=== PATIENT | female | born 1990 | race African-American/Black ===

== ENCOUNTER 2017-05-27 09:44 | Observation (INO) | payer MEDICAID ==
[~2017-05-27] VITALS: Ht 162.6 cm; Wt 70.3 kg
[2017-05-27 10:26] LABS: CLARITY URINE CLOUDY (CLEAR); COLOR URINE YELLOW (YELLOW); GLUCOSE URINE NEGATIVE (NEGATIVE); KETONES URINE 4+ (NEGATIVE); LEUKOCYTE ESTERASE URINE 2+ (NEGATIVE); NITRITE URINE NEGATIVE (NEGATIVE); OCCULT BLOOD URINE NEGATIVE (NEGATIVE); PROTEIN URINE NEGATIVE (NEGATIVE); SPECIFIC GRAVITY URINE 1.007 (1.005-1.030)
[2017-05-27] MEDS ORDERED: PREN-88 PO (10:34)
[2017-05-27] MEDS ORDERED: ACETAMINOPHEN 500MG TABLET PO NR (11:15)
[2017-05-27] MEDS ORDERED: LACTATED RINGERS 1,000 ML IV SCH (11:15)
[2017-05-27] MEDS ORDERED: CEFAZOLIN 1000MG PREMIX 50 ML IV SCH (11:30)
== END 2017-05-27 14:35 | disposition home or self-care (01) ==
LOC: L&D 09:44
PROVIDERS: ADMIT Obstetrics & Gynecology; ATTEND Obstetrics & Gynecology
DX: O26.893 Other specified pregnancy related conditions, third trimester (principal); R10.33 Periumbilical pain; R11.0 Nausea; O10.913 Unspecified pre-existing hypertension complicating pregnancy, third trimester; Z3A.28 28 weeks gestation of pregnancy
CPT/HCPCS: 76815; 76818; 81001; 96365; 99281; G0378; J0690; J7120; 96360; 96361

== ENCOUNTER 2021-03-18 20:24 | Emergency (ER) | payer MEDICAID ==
[~2021-03-18] VITALS: Ht 162.6 cm; Wt 73.0 kg
[~2021-03-18 20:24] MED LIST: PREN-88 PO
[2021-03-18 20:37] VITALS: BP 149/111
[2021-03-18] MEDS ORDERED: FLUORESCEIN SODIUM 1MG/STRIP BOTHEYE ONE (21:45)
[2021-03-18] MEDS ORDERED: TETRACAINE 0.5% OPHTH DROPS 4ML BOTHEYE ONE (21:45)
[2021-03-18] MEDS ORDERED: CIPR2.5D13 LEFTEYE (22:51)
== END 2021-03-18 23:10 | disposition home or self-care (01) ==
LOC: ER 20:24
DX: S05.02XA Injury of conjunctiva and corneal abrasion without foreign body, left eye, initial encounter (principal); I10 Essential (primary) hypertension; X58.XXXA Exposure to other specified factors, initial encounter; Y93.89 Activity, other specified; Y92.018 Other place in single-family (private) house as the place of occurrence of the external cause; Y99.8 Other external cause status
CPT/HCPCS: 99282

== ENCOUNTER 2022-04-16 21:18 | Emergency (ER) | payer MEDICAID ==
[~2022-04-16] VITALS: Ht 162.6 cm; Wt 74.4 kg
[~2022-04-16 21:18] MED LIST changes: +CIPR2.5D13 LEFTEYE
[2022-04-16 21:29] VITALS: BP 186/124
[2022-04-16] MEDS ORDERED: BO1 TP (22:49)
[2022-04-16] MEDS ORDERED: BACITRACIN 15GM TUBE TOP ONE (23:00)
[2022-04-16] MEDS ORDERED: CEPHALEXIN 250MG CAPSULE PO ONE (23:00)
[2022-04-16] MEDS ORDERED: CEPH500C2 MT (23:10)
[2022-04-16] MEDS ORDERED: BACITRACIN ZINC OINT UDPKT TOP NR (23:15)
[2022-04-16] MEDS ORDERED: BACITRACIN 15GM TUBE TOP NR (23:15)
== END 2022-04-16 23:30 | disposition home or self-care (01) ==
LOC: ER 21:18
DX: T25.222A Burn of second degree of left foot, initial encounter (principal); L03.115 Cellulitis of right lower limb; I10 Essential (primary) hypertension; F41.9 Anxiety disorder, unspecified; Y27.2XXA Contact with hot fluids, undetermined intent, initial encounter; Y93.89 Activity, other specified; Y92.9 Unspecified place or not applicable
CPT/HCPCS: 99283

== ENCOUNTER 2022-05-10 17:12 | Emergency (ER) | payer MEDICAID ==
[~2022-05-10] VITALS: Ht 162.6 cm; Wt 75.0 kg
[~2022-05-10 17:12] MED LIST changes: +BO1 TP; +CEPH500C2 MT
[2022-05-10] MEDS ORDERED: LIDOCAINE HCL/PF 1% 10 MG/ML 5ML VIAL INFIL ONE (18:00)
[2022-05-10] MEDS ORDERED: BACITRACIN ZINC OINT UDPKT TOP ONE (18:00)
[2022-05-10 19:11] VITALS: BP 127/86
== END 2022-05-10 19:12 | disposition home or self-care (01) ==
LOC: ER 17:12
DX: S61.211A Laceration without foreign body of left index finger without damage to nail, initial encounter (principal); W45.8XXA Other foreign body or object entering through skin, initial encounter; Y93.89 Activity, other specified; Y92.89 Other specified places as the place of occurrence of the external cause; Y99.8 Other external cause status
CPT/HCPCS: 12001; 99282; J3490

== ENCOUNTER 2023-05-04 11:34 | Emergency (ER) | payer MEDICAID ==
[~2023-05-04] VITALS: Ht 162.6 cm; Wt 72.5 kg
[~2023-05-04 11:34] MED LIST changes: -CIPR2.5D13 LEFTEYE; +CIPR2.5D20 LEFTEYE
[2023-05-04 11:44] VITALS: BP 143/109; PULSE 101; RESP 20; TEMP 98.2; O2SAT 100
== END 2023-05-04 14:37 | disposition home or self-care (01) ==
LOC: ER 11:34
DX: R68.89 Other general symptoms and signs (principal); F41.9 Anxiety disorder, unspecified; F32.9 Major depressive disorder, single episode, unspecified; I10 Essential (primary) hypertension; Z00.00 Encounter for general adult medical examination without abnormal findings
CPT/HCPCS: 99281; Z7610 ×2

== ENCOUNTER 2023-05-26 03:19 | Emergency (ER) | payer MEDICAID ==
[2023-05-26 03:22] VITALS: PULSE 110
== END 2023-05-26 07:54 | disposition left against medical advice (07) ==
LOC: ER 04:29
DX: Z53.21 Procedure and treatment not carried out due to patient leaving prior to being seen by health care provider (principal)
CPT/HCPCS: 99281